=== PATIENT | female | born 1940 | race Caucasian/White ===

== ENCOUNTER 2022-09-12 12:38 | Outpatient (CLI) | payer MEDICARE, BC | END 2022-09-12 12:39 | disposition home or self-care (01) | LOC: CSHCP 12:38 | PROVIDERS: ATTEND Internal Medicine Critical Care Medicine | DX: R06.00 Dyspnea, unspecified (principal); J45.20 Mild intermittent asthma, uncomplicated; R06.02 Shortness of breath | CPT/HCPCS: 94060; 94618; 94726; 94729 ==